=== PATIENT | female | born 1985 | race Caucasian/White ===

== ENCOUNTER 2017-03-17 18:14 | Emergency (ER) | payer MEDICAID ==
[~2017-03-17 18:14] MED LIST: PREN-88 PO
== END 2017-03-17 20:56 | disposition left against medical advice (07) ==
LOC: ER 19:59
DX: Z53.21 Procedure and treatment not carried out due to patient leaving prior to being seen by health care provider (principal)

== ENCOUNTER 2019-03-15 16:28 | Emergency (ER) | payer OTHER, MEDICAID ==
[~2019-03-15] VITALS: Ht 170.2 cm; Wt 103.0 kg
[2019-03-15] MEDS ORDERED: ACETAMINOPHEN 500MG TABLET PO ONE (17:15)
[2019-03-15 20:46] VITALS: BP 100/65
== END 2019-03-15 20:55 | disposition home or self-care (01) ==
LOC: ER 16:28
DX: S00.03XA Contusion of scalp, initial encounter (principal); G47.419 Narcolepsy without cataplexy; C85.90 Non-Hodgkin lymphoma, unspecified, unspecified site; Z91.018 Allergy to other foods; Z79.899 Other long term (current) drug therapy; W18.39XA Other fall on same level, initial encounter; Y93.89 Activity, other specified; Y92.89 Other specified places as the place of occurrence of the external cause; Y99.8 Other external cause status
CPT/HCPCS: 81025; 99284